=== PATIENT | female | born 1980 | race Two or more races ===

== ENCOUNTER 2022-04-04 06:22 | Inpatient (IN) | payer OTHER ==
[~2022-04-04] VITALS: Ht 162.6 cm; Wt 99.8 kg
[2022-04-05] MEDS ORDERED: FUSION PLUS CA1 EACH (08:38)
[2022-04-05] MEDS ORDERED: NAPR500T14 PO (09:00)
[2022-04-05] MEDS ORDERED: Tylenol #3 PO (09:00)
== END 2022-04-05 14:35 | disposition home or self-care (01) | DRG 743 ==
LOC: CIR.AMB 06:22 → O/R 15:49 → OB/GYN 16:02
PROVIDERS: ADMIT Obstetrics & Gynecology; ATTEND Obstetrics & Gynecology
PROC: 0UT90ZZ Resection of Uterus, Open Approach (ICD-10-PCS; principal; 2022-04-04 14:45)
DX: N85.02 Endometrial intraepithelial neoplasia [EIN] (principal); N72 Inflammatory disease of cervix uteri; Z20.822 Contact with and (suspected) exposure to COVID-19